=== PATIENT | male | born 1995 | race Caucasian/White ===

== ENCOUNTER 2022-08-18 13:19 | Inpatient (IN) | payer SELFPAY ==
[~2022-08-18] VITALS: Ht 175.3 cm; Wt 111.9 kg
[2022-08-18] VITALS (342 sets, daily range): BP systolic 140–141; BP diastolic 80–84; PULSE 104–105; TEMP 98–98.2; O2SAT 89–97
[2022-08-18 13:54] LABS: BASO # 0.1 K/mm3 (0.0-0.2); BASO % 0.4 % (0.0-2.0); EOS # 0.3 K/mm3 (0.0-0.7); EOS % 1.1 % (0.0-4.0); GRAN # 18.3 K/mm3 (1.4-6.5); GRAN % 76.7 % (42.2-75.2); HEMATOCRIT 42.4 % (42.0-52.0); HEMOGLOBIN 14.3 g/dl (13.5-18.0); LYMPH # 3.7 K/mm3 (1.2-3.4); LYMPH % 15.6 % (20.0-51.0); MEAN CELL VOLUME 86 fl (80.0-100.0); MEAN CORPUSCULAR HEMOGLOBIN 29 pg (27-31); MEAN CORPUSCULAR HGB CONC 34 g/dl (33.0-37.0); MEAN PLATELET VOLUME 9.5 fl (7.4-10.4); MONO # 1.4 K/mm3 (0.1-0.6); MONO % 5.6 % (1.7-9.3); PLATELET COUNT 500 K/mm3 (130-400); RED BLOOD COUNT 4.92 M/mm3 (4.20-5.60); REDCELL DISTRIBUTION WIDTH-CV 12.9 % (11.5-14.5)
[2022-08-18 14:20] LABS: ALBUMIN 3.7 gm/dL (3.5-5.0); BILIRUBIN,TOTAL 0.5 mg/dL (0.2-1.2); C-REACTIVE PROTEIN 11.38 mg/dL (0.00-0.50); CREATININE, serum 1.21 mg/dL (0.72-1.25); POTASSIUM 4.2 mmol/L (3.5-4.5); TOTAL PROTEIN 9.3 gm/dL (6.2-8.1)
[2022-08-18 14:54] LABS: STREP SCREEN POSITIVE
[2022-08-18 15:06] LABS: COLLECTION METHOD CLEAN CATCH
[2022-08-18 16:21] LABS: MUCOUS Present (NOT PRESENT); SQUAMOUS EPITHELIAL None Seen /hpf (0-10); URINE BACTERIA None Seen /hpf (NONE SEEN)
[2022-08-18 16:22] LABS: PH 5.5 (5-8); URINE APPEARANCE Cloudy (CLEAR/HAZY); URINE COLOR Yellow (YELLOW)
[2022-08-18 16:23] LABS: URINE BLOOD TRACE-LYSED (NEGATIVE); URINE GLUCOSE Negative (NEGATIVE); URINE KETONE Negative (NEGATIVE); URINE NITRATE Negative (NEGATIVE); URINE PROTEIN(semi-quant) 2+ (NEGATIVE); URINE UROBILINOGEN 0.2 (NEGATIVE)
--- NOTE | 2022-08-18 17:00 | NUR ---
Patient arrived to the unit at approx 1650 by bed; patient was stable and upon hooking patient up to monitor, patient was tachycardic and slightly hypertensive. Patient was admitted to the unit with two peripheral IVs, on room air with no other tubes or lines in place. Patient is alert and oriented and afebrile.
--- NOTE | 2022-08-18 19:31 | NUR ---
RECEIVED REPORT FROM DAY SHIFT NURSE. PT'S VITALS ARE STABLE AT THIS TIME. PT'S IS IN THE ROOM WITH THE PT AT THIS TIME.
[2022-08-19] VITALS (855 sets, daily range): BP systolic 116–151; BP diastolic 69–89; PULSE 69–94; TEMP 97.6–98.2; O2SAT 88–99
--- NOTE | 2022-08-19 00:56 | NUR ---
2300 PT WAS ASLEEP AND THEIR SP02 STARTED TO DROP IN TO 87% AND 88% CONSISTENTLY. PUT 2 L NC ON AND PT IS NOW STATING IN THE LOW TO MID 90'S WHEN SLEEPING. WHEN PT IS AWAKE THIS NURSE HAS NOT NOTICED ANY PVC'S AND HR STAYED SR TO ST WITHOUT JUMPING AROUND IRREGULARLY. 0020 PT WAS ASLEEP. THIS NURSE NOTICED THAT HR WAS JUMPING AROUND FREQUENTLY FROM 80'S TO 50'S THEN 70'S TO 60'S CONSISTENTLY. IT LOOKED IRREGULAR WITH P WAVES PRESENT. THEN STARTED TO SEE PVC'S WHEN TALKING TO [email or web address] ABOUT IT. NOTIFIED HOSPITALSIT. GOT AN EKG AND WHEN PT WOKE UP, HIS RHYTHM WENT BACK INTO THE 80'S TO 90'S RANGE WITHOUT JUMPING AROUND IRREGULARLY. 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 PT HAD NO COMPLAINTS OF DIZZINESS OR DIFFICULTLY BREATHING. PT'S TEMP WAS 98.0 DEGREE F AND PULSES WERE PRESENT. WILL CONTINUE TO MONITOR.
--- NOTE | 2022-08-19 04:35 | NUR ---
0147 PT STARTED TO DESTAT TO 87% AND 88% CONSISTENTLY. PT WAS SNORING WORSE THAN BEFORE. INCREASED O2 TO 3.5 NC. HOSPITALIST WAS NOTIFIED. WOKE UP THE PT, THEN THE SPO2 WENT UP. ASKED THE PT IF THEY ARE DOING OKAY AND IF ANYTHING FEELS ABNORMAL OR DIFFERENT. PT DENIES FEELING DIFFERENT WITH BREATHING OR DIZZY. HOSPITALIST MENTIONED THAT THE PT MAY NEED TO DO OUT PT SLEEP STUDY.
[2022-08-19 05:22] LABS: BASO % 0.1 % (0.0-2.0); GRAN % 88.7 % (42.2-75.2); HEMATOCRIT 38.9 % (42.0-52.0); HEMOGLOBIN 12.7 g/dl (13.5-18.0); LYMPH # 1.5 K/mm3 (1.2-3.4); MEAN CELL VOLUME 87 fl (80.0-100.0); MEAN CORPUSCULAR HEMOGLOBIN 28 pg (27-31); MEAN CORPUSCULAR HGB CONC 33 g/dl (33.0-37.0); MEAN PLATELET VOLUME 9.5 fl (7.4-10.4); MONO # 0.1 K/mm3 (0.1-0.6); MONO % 0.6 % (1.7-9.3); PLATELET COUNT 413 K/mm3 (130-400); RED BLOOD COUNT 4.48 M/mm3 (4.20-5.60); REDCELL DISTRIBUTION WIDTH-CV 12.8 % (11.5-14.5)
[2022-08-19 05:43] LABS: CREATININE, serum 0.8 mg/dL (0.72-1.25); MAGNESIUM 2.3 mg/dL (1.6-2.6); POTASSIUM 4.1 mmol/L (3.5-4.5)
--- NOTE | 2022-08-19 12:00 | NUR ---
SW met with patient to complete intake. Patient states that he lives in [facility] with his [place] [phone]. Patient states he does not utilize DME, is independent with ADL's, and does not utilize home health services at this time. PCP is Dr. Guzman, and pharmacy is [facility]. DC plan is home. SW will continue to follow. DC plan: home
--- NOTE | 2022-08-19 21:06 | NUR ---
Patient resting quietly in bed watching TV. He is up independently in the room with steady gait. Denies any pain or discomfort. All vitals within normal limits. IVF infusing according to orders.
[2022-08-20] VITALS: BP 127/88; PULSE 84; TEMP 98
[2022-08-20 04:00] VITALS: BP 119/78; PULSE 70; TEMP 97.8
[2022-08-20 06:45] LABS: HEMATOCRIT 40.8 % (42.0-52.0); MEAN CELL VOLUME 90 fl (80.0-100.0); MEAN CORPUSCULAR HEMOGLOBIN 29 pg (27-31); MEAN CORPUSCULAR HGB CONC 32 g/dl (33.0-37.0); MEAN PLATELET VOLUME 9.8 fl (7.4-10.4); PLATELET COUNT 447 K/mm3 (130-400); RED BLOOD COUNT 4.55 M/mm3 (4.20-5.60); REDCELL DISTRIBUTION WIDTH-CV 12.7 % (11.5-14.5)
[2022-08-20 06:59] LABS: CALCIUM 9.2 mg/dL (8.4-10.2); CREATININE, serum 0.8 mg/dL (0.72-1.25); POTASSIUM 4.1 mmol/L (3.5-4.5)
[2022-08-20 07:43] LABS: BAND 1 % (0-10); LYMPHOCYTE 6 % (20.0-51.0); NEUTROPHILS 92 % (42.0-75.2)
[2022-08-20] MEDS ORDERED: AMOXICILLIN 8751 TAB PO (07:43)
[2022-08-20 07:44] LABS: PLATELET ESTIMATE INCREASED (NORMAL)
[2022-08-20] MEDS ORDERED: PREDNISONE10 MG PO (07:45)
[2022-08-20 08:00] VITALS: BP 119/78; PULSE 85; TEMP 98
--- NOTE | 2022-08-20 10:29 | NUR ---
BEDSIDE REPORT FROM NIKKY GAMA. PT RESTING IN BED. VSS ON ROOM AIR. FLUIDS INFUSING ORDERED TO R AC. PT USES CALL LIGHT FOR NEEDS.
--- NOTE | 2022-08-20 11:31 | NUR ---
PT DENIES PAIN OR TROUBLE SWALLOWING AND IS ABLE TO EAT SOFT DIET AND DRINK FLUIDS. PT INSTRUCTED TO FOLLOW UP W/ PCP AND ENT WITHIN ONE WEEK, METALSMITH PRESCRIPTIONS AND TAKE PRESCRIBED, AND TO CALL PCP OR RETURN TO ED FOR ANY S/SX OF INFECTION OR TROUBLE BREATHING. IV SITES TO BILATERAL AC'S DISCONTINUED PRIOR TO DISCHARGE. PT D/C'D HOME W/ AT 1120.
== END 2022-08-20 11:20 | disposition home or self-care (01) | DRG 872 ==
LOC: COL.ER 13:19 → ICU 16:16
PROVIDERS: Emergency Medicine; ADMIT Hospitalist
DX: A40.9 Streptococcal sepsis, unspecified (principal); J05.10 Acute epiglottitis without obstruction; J36 Peritonsillar abscess; D75.839 Thrombocytosis, unspecified; E86.0 Dehydration; R00.0 Tachycardia, unspecified
CPT/HCPCS: J0295; J1100; J1650; J7030; Q9967